=== PATIENT | male | born 1945 | race Caucasian/White ===

== ENCOUNTER 2017-02-02 14:46 | Observation (INO) | payer BC, OTHER ==
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
[~2017-02-02 14:46] MED LIST: ADVAIR250 INH; ALFALFA PO; AMIT100 PO; AMIT25 PO; AMIT50 PO; AMPI500 PO; ASA5GR PO; ASAB PO; ASABAYER PO; CLINDA150 PO; CLOTRIM/BETA TOP; CORDARONE PO; DOK250 MG PO; DRONED400 PO; EXALGO16 MG PO; FIBER PO; FIBERCON PO; FISH OIL1200 MG PO; GLUCOPHAGE1000 MG PO; I10 PO; IODOSORB GEL; LEVAQUIN5T PO; LIPITOR80 MG PO; LOFIB160 PO; LORTAB10 PO; LUNESTA2 M1 OR; METHIMAZOLE5 MG; METHIMAZOLE5 MG PO; MONODOX100 MG PO; MSCONT15 PO; MSCONT60 PO; MULTIVIT/MIN PO; NEUR300 PO; NORCO1 TAB PO; PROBIOTIC PO; REQUIP1 PO; SPIRIVA INH; VANCO500 IV; VITAMIN B-121000 MC1 SL; VITAMIN B-122500 MCG PO; VITAMIN D31000 UNIT PO; VITD; X25 PO; XARELTO20 MG PO; ZOCOR40 PO; ZYRTEC ALLGY10 MG PO; ZYVOXPO PO
[2017-02-02 14:49] LABS: BE (BASE EXCESS) -2.6 MEQ/L (0 +/- 2.5); HCO3 (ACTUAL BICARBONATE) 22.6 MEQ/L (23-27); INSTRUMENT SERIAL # 8087; PCO2 (CO2 TENSION) 41 MMHG (35-45); PO2 (O2 TENSION) 70 MMHG (79-93); pH 7.36 (7.37-7.43)
[2017-02-02 14:50] LABS: ALLENS TEST Pos; CARBOXYHEMOGLOBIN 1.6 % (0-3); HEMOBLOGIN CONTENT 14.1 G/DL (14-18); METHEMOGLOBIN 0.1 % (0-3); O2 CONTENT 18.2 VOL% (18-24); SAMPLE Arterial
[2017-02-02 14:55] LABS: BASOPHILS 0.6 %; BASOPHILS ABSOLUTE 0.02 10/3/uL (0.0-0.16); EOSINOPHILS 5.8 %; EOSINOPHILS ABSOLUTE 0.21 10/3/uL (0.0-0.53); ER CBC TAT 0 Hrs 05 Mins; HEMATOCRIT 39.8 % (40.0-51.0); HEMOGLOBIN 13.7 g/dL (13.6-17.8); IMMATURE GRANULOCYTES 0.3 %; IMMATURE GRANULOCYTES ABSOLUTE 0.01 10/3/uL (0.0-0.11); LYMPHOCYTES 43.8 %; LYMPHOCYTES ABSOLUTE 1.59 10/3/uL (0.67-4.30); MANUAL DIFF NO %; MEAN CORPUS HGB CONC 34.4 g/dL (32.0-36.0); MEAN CORPUSCULAR HEMOGLOB 31.4 pg (26.0-34.0); MEAN CORPUSCULAR VOLUME 91.3 fL (80-100); MEAN PLATELET VOLUME 11.1 fL (9.2-13.0); MONOCYTES 6.1 %; MONOCYTES ABSOLUTE 0.22 10/3/uL (0.21-1.20); NEUTROPHILS 43.4 %; NEUTROPHILS ABSOLUTE 1.58 10/3/uL (2.02-8.40); PLATELET COUNT 146 10/3/uL (150-400); RBC DISTRIBUTION WIDTH 12.7 % (12.0-16.0); RED CELL COUNT 4.36 10/6/uL (4.7-6.1); WHITE BLOOD CELLS 3.6 10/3/uL (4.5-10.5)
[2017-02-02] MEDS ORDERED: VITAMIN D2000 UNIT PO (14:57)
[2017-02-02] MEDS ORDERED: AMPI500 PO (14:59)
[2017-02-02] MEDS ORDERED: NEUR800 PO (15:00)
[2017-02-02] MEDS ORDERED: DOK250 MG PO (15:00)
[2017-02-02] MEDS ORDERED: LOFIBRA160 MG PO (15:00)
[2017-02-02] MEDS ORDERED: ASABAYER PO (15:00)
[2017-02-02 15:01] LABS: INTERNATIONAL NORMAL RATI 1.2 UNITS (-); PROTIME (NOT ORD) 14.6 SEC (12.0-14.5)
[2017-02-02] MEDS ORDERED: GARACR15 TOP (15:01)
[2017-02-02] MEDS ORDERED: NORCO1 TAB PO (15:01)
[2017-02-02] MEDS ORDERED: EXALGO16 MG PO (15:01)
[2017-02-02] MEDS ORDERED: AMIT25 PO (15:01)
[2017-02-02 15:02] LABS: PARTIAL THROMBO TIME 27.8 SEC (22.5-37.2)
[2017-02-02] MEDS ORDERED: GLUCOPHAGE1000 MG PO (15:02)
[2017-02-02] MEDS ORDERED: PRAVACHOL80 MG PO (15:02)
[2017-02-02] MEDS ORDERED: REQUIP1 PO (15:03)
[2017-02-02] MEDS ORDERED: X25 PO (15:03)
[2017-02-02] MEDS ORDERED: CENTRUM PO (15:03)
[2017-02-02] MEDS ORDERED: CYANO1000T PO (15:04)
[2017-02-02] MEDS ORDERED: FISH-EPA1000 MG PO (15:05)
[2017-02-02 15:18] LABS: A/G RATIO 1.2 (0.7-1.9); BUN (BLOOD UREA NITROGEN) 17 MG/DL (6-23); CALCIUM, SERUM 8.7 MG/DL (8.5-10.4); CHLORIDE, SERUM 109 MMOL/L (96-112); CO2 (CARBON DIOXIDE) 25 MMOL/L (24-34); CREATININE 1.36 MG/DL (0.70-1.30); GFR AFRICAN AMERICAN 60 ML/MIN (>=60); GFR NON AFRICAN AMERICAN 52 ML/MIN (>=60); GLOBULIN 3.3 G/DL (2.5-4.1); POTASSIUM, SERUM 4.4 MMOL/L (3.5-5.3); SGOT(AST) 25 U/L (5-40); SGPT(ALT) 36 U/L (5-65); SODIUM, SERUM 141 MMOL/L (135-148); TOTAL BILIRUBIN 0.5 MG/DL (0-1.2); TOTAL PROTEIN 7.3 G/DL (6.0-8.5); TROPONIN I <0.02 NG/ML (<0.05)
[2017-02-02 15:19] LABS: ALKALINE PHOSPHATASE 54 U/L (45-117); GLUCOSE, SERUM 103 MG/DL (60-99); ULTRASENSITIVE TSH 0.828 MCIU/ML (0.358-3.740)
[2017-02-03 05:41] LABS: BASOPHILS 0.3 %; BASOPHILS ABSOLUTE 0.01 10/3/uL (0.0-0.16); EOSINOPHILS 6.2 %; HEMATOCRIT 38.6 % (40.0-51.0); HEMOGLOBIN 13.3 g/dL (13.6-17.8); LYMPHOCYTES ABSOLUTE 1.49 10/3/uL (0.67-4.30); MEAN CORPUS HGB CONC 34.5 g/dL (32.0-36.0); MEAN CORPUSCULAR HEMOGLOB 31.5 pg (26.0-34.0); MEAN CORPUSCULAR VOLUME 91.5 fL (80-100); MEAN PLATELET VOLUME 11.3 fL (9.2-13.0); MONOCYTES 6.8 %; MONOCYTES ABSOLUTE 0.22 10/3/uL (0.21-1.20); NEUTROPHILS 40.7 %; NEUTROPHILS ABSOLUTE 1.32 10/3/uL (2.02-8.40); PLATELET COUNT 144 10/3/uL (150-400); RBC DISTRIBUTION WIDTH 12.4 % (12.0-16.0); RED CELL COUNT 4.22 10/6/uL (4.7-6.1); WHITE BLOOD CELLS 3.2 10/3/uL (4.5-10.5)
[2017-02-03 05:46] LABS: MANUAL DIFF NO %
[2017-02-03 06:16] LABS: BUN (BLOOD UREA NITROGEN) 19 MG/DL (6-23); CALCIUM, SERUM 8.8 MG/DL (8.5-10.4); CHLORIDE, SERUM 106 MMOL/L (96-112); CO2 (CARBON DIOXIDE) 25 MMOL/L (24-34); FREE T4 0.92 NG/DL (0.76-1.46); GFR AFRICAN AMERICAN 63 ML/MIN (>=60); GFR NON AFRICAN AMERICAN 55 ML/MIN (>=60); POTASSIUM, SERUM 3.9 MMOL/L (3.5-5.3); SODIUM, SERUM 140 MMOL/L (135-148); TROPONIN I <0.02 NG/ML (<0.05)
[2017-02-03 06:17] LABS: CPK 126 U/L (0-200); GLUCOSE, SERUM 128 MG/DL (60-99); PHOSPHORUS, SERUM 3.6 MG/DL (2.5-4.5)
[2017-02-03 06:34] LABS: PROCALCITONIN <0.05 ng/mL (<0.5)
[2017-02-03 07:03] LABS: SED RATE 2 MM/HR (0-15)
[2017-02-03 07:29] LABS: GLYCOHEMOGLOBIN (HbA1c) 6.1 % (4.7-6.1)
[2017-02-03 10:59] LABS: ASCORBIC ACID (UR NOT ORDER) NEG (NEG); BILIRUBIN, URINE NEGATIVE (NEG); KETONE, URINE NEGATIVE (NEG); LEUKOCYTE ESTERASE(NOT OR NEG (NEG); WBC (NOT ORDERED) (RFLEX) 1 (0-5)
[2017-02-03] MEDS ORDERED: AMIT25 PO (12:11)
[2017-02-03] MEDS ORDERED: NEUR300 (12:12)
== END 2017-02-03 12:31 | disposition home or self-care (01) ==
LOC: ER 14:46 → CDU1 18:26
PROVIDERS: Emergency Medicine; Internal Medicine; Student in an Organized Health Care Education/Training Program
DX: G92 Toxic encephalopathy (principal); I12.9 Hypertensive chronic kidney disease with stage 1 through stage 4 chronic kidney disease, or unspecified chronic kidney disease; E11.22 Type 2 diabetes mellitus with diabetic chronic kidney disease; N18.3 Chronic kidney disease, stage 3 (moderate); J44.9 Chronic obstructive pulmonary disease, unspecified; I48.91 Unspecified atrial fibrillation; G25.81 Restless legs syndrome; G47.33 Obstructive sleep apnea (adult) (pediatric); E11.40 Type 2 diabetes mellitus with diabetic neuropathy, unspecified; G62.9 Polyneuropathy, unspecified; Z98.890 Other specified postprocedural states; Z85.46 Personal history of malignant neoplasm of prostate; Z88.8 Allergy status to other drugs, medicaments and biological substances; Z79.2 Long term (current) use of antibiotics; Z79.52 Long term (current) use of systemic steroids; Z79.899 Other long term (current) drug therapy; Z79.82 Long term (current) use of aspirin; Z90.49 Acquired absence of other specified parts of digestive tract
CPT/HCPCS: 70450; 71020; 80048; 80053; 81001; 82140; 82550; 82805; 82962; 83036; 83735; 83880; 84100; 84145; 84439; 84443; 84484; 85025; 85610; 85652; 85730; 87449; 93005; 96372; 97161-GP; 99285; A9270-GY; G0378